=== PATIENT | female | born 1995 | race Caucasian/White ===

== ENCOUNTER 2017-05-07 03:12 | Emergency (ER) | payer SELFPAY ==
[~2017-05-07] VITALS: Ht 162.6 cm; Wt 72.0 kg
[2017-05-07 03:15] VITALS: BP 127/91; PULSE 78; RESP 18; TEMP 98.7; O2SAT 98
[2017-05-07] MEDS ORDERED: DIPH25CA PO (03:33)
[2017-05-07] MEDS ORDERED: IBUP-232 PO (03:33)
--- NOTE | 2017-05-07 03:35 | PD ---
HPI Chief Complaint: Skin Problem Time Seen by Provider: 03:30 Travel History International Travel<30 days: No Contact w/Intl Traveler<30days: No Traveled to known affect area: No History of Present Illness HPI 22-year-old female patient presents to the ER today for fevers and several days ' history of rash that has gotten worse and is over her face and upper chest areas. 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 She denies any vomiting, diarrhea, or other symptoms. She had seen in urgent care but was told to get checked out further if she has any further rashes. Modifying Factors: None Associated Signs & Symptoms: Fever, rash Risk Factors:, Sick contact with chickenpox PFSH Past Medical History Diminished Hearing: No Medical other: Yes (Pre-Diabetes) Tetanus Vaccination: Unknown Influenza Vaccination: No ?: Not LMP: 04/12/2017 Past Surgical History Surgical History: No Previous Surgery Social History Alcohol Use: No Tobacco Use: No Substance Use: No Allergies-Medications (Allergen,Severity, Reaction): Coded Allergies: No Known Drug Allergies (Verified Allergy, Unknown, 05/07/17) Review of Systems Except as stated in HPI: all other systems reviewed are Neg Physical Exam Narrative GENERAL: Well-developed young female patient currently in mild distress. Awake and oriented 3. SKIN: Focused skin assessment warm/dry. There is a diffuse erythematous rash and vesicles in different stages on the face and chest areas. No rash on the hands and feet. HEAD: Atraumatic. Normocephalic. EYES: Pupils equal and round. No scleral icterus. No injection or drainage. ENT: No nasal bleeding or discharge. Mucous membranes pink and moist. NECK: Trachea midline. No JVD. Supple. CARDIOVASCULAR: Regular rate and rhythm. No murmur appreciated. RESPIRATORY: No accessory muscle use. Clear to auscultation. Breath sounds equal bilaterally. GASTROINTESTINAL: Abdomen soft, non-tender, nondistended. Hepatic and splenic margins not palpable. MUSCULOSKELETAL: No obvious deformities. No clubbing. No cyanosis. No edema. NEUROLOGICAL: Awake and alert. No obvious cranial nerve deficits. Motor grossly within normal limits. Normal speech. PSYCHIATRIC: Appropriate mood and affect; insight and judgment normal. Data Data Last Documented VS Vital Signs Date Time Temp Pulse Resp B/P (MAP) Pulse Ox O2 Delivery O2 Flow Rate FiO2 1/27/18 03:28 16 05/07/17 03:15 98.7 78 127/91 (103 98 MDM Medical Decision Making Medical Screen Exam Complete: Yes Emergency Medical Condition: Yes Medical Record Reviewed: Yes Differential Diagnosis Allergic reaction versus viral syndrome versus versus varicella Narrative Course Considering exposure and the fact that the patient has never had chickenpox, I suspect that she has chickenpox. The formation at the rash appears indicative as well. At this point, my plan would be to treat her symptomatically. She should avoid work, children, those that never had chickenpox, and women. Return for any worsening in symptoms as necessary. The plan has been discussed with her and she states understanding. Diagnosis Primary Impression: Chickenpox Med/Other Pt SpecificInfo: Prescription(s) given Scripts Ibuprofen (Ibuprofen) 600 Mg Tab 600 MG PO Q6H Y for Pain/Inflammation, #20 TAB 0 Refills Prov: Rochelle Leach MD 05/07/17 Diphenhydramine (Diphenhydramine) 25 Mg Cap 25 MG PO Q6H Y for ALLERGIES, #20 CAP 0 Refills Prov: Rochelle Leach MD 05/07/17 Disposition: 01 DISCHARGE HOME Condition: Stable Rochelle Leach MD May 07, 2017 03:35
[2017-05-07 03:51] VITALS: PULSE 72; RESP 16; O2SAT 97
== END 2017-05-07 03:52 | disposition home or self-care (01) ==
LOC: PHED 03:12
DX: B01.9 Varicella without complication (principal); R73.03 Prediabetes
CPT/HCPCS: 99283